=== PATIENT | female | born 1975 | race Caucasian/White ===

== ENCOUNTER 2017-12-11 16:03 | Emergency (ER) | payer OTHER ==
[~2017-12-11] VITALS: Ht 154.9 cm; Wt 57.6 kg
--- NOTE | 2017-12-11 16:16 | ED GENERAL ADULT ---
History of Present Illness General Chief Complaint: General Adult Stated Complaint: PT WAS SENT BY HER DR Source: patient Exam Limitations: no limitations Vital Signs & Intake/Output Vital Signs & Intake/Output Vital Signs Date Time Temp Pulse Resp B/P B/P Pulse O2 O2 Flow FiO2 Mean Ox Delivery Rate 12/11 1942 98.2 82 20 129/84 97 Room Air 12/11 1839 98.2 84 18 113/54 99 12/11 1607 98.8 111 18 124/82 98 Room Air Allergies Coded Allergies: No Known Allergies (07/26/16) Triage Note: 42 YO FEMALE TO TRIAGE FOR EVAL OF MIGRANE SINCE SATURDAY. REPORTS SHE TRIED TO CALL NEUROLOGIST BUT WAS UNABLE TO GET AHOLD OF THEM. STATES NORAMLLY TAKES TOPAMAX. STATES +NAUSEA AT THIS TIME. Triage Nurses Notes Reviewed? yes Onset: Abrupt Duration: day(s): Timing: recent history : No Patient currently breastfeeds: No HPI: 12/11/17 4:42 PM 42-year-old female presents to the emergency department for severe migraine headache. According to the patient she has a history of migraines. She says that this headache started on Saturday evening. It is consistent with her prior migraines. She usually takes Topamax and Zomig for breakthrough pain. However she continues to have pain and vomiting. She also has a history of insulin- dependent diabetes. (Franck Lopez DO) Reconcile Medications Sulfacetamide Sodium/Sulfur (Sod Sulfacet-Sulfur 10-5% Clsr) 10 %-5 % (W/W) CLEANSER SKIN PROBLEMS (Reported) Topiramate 200 MG TABLET 1 TAB PO BID SEIZURES (Reported) (Ba Good MD) Past History Travel History Traveled to [place] past 21 day No Medical History Any Pertinent Medical History? see below for history Neurological: migraine EENT: NONE Cardiovascular: NONE Respiratory: NONE Gastrointestinal: NONE Hepatic: NONE Renal: NONE Musculoskeletal: NONE Psychiatric: depression, PTSD Endocrine: Type 1 diabetes Blood Disorders: NONE Cancer(s): NONE MEN'S FURNISHINGS SALESPERSON/Reproductive: NONE Surgical History Surgical History: insulin pump Psychosocial History What is your primary language Ma[place] Tobacco Use: Never used Family History Hx Contributory? No (Franck Lopez DO) Review of Systems Review of Systems Constitutional: Denies: fever. EENTM: Denies: blurred vision. Respiratory: Denies: short of breath. Cardiovascular: Denies: chest pain. GI: Denies: abdominal pain. Genitourinary: Reports: no symptoms. Musculoskeletal: Reports: no symptoms. Skin: Reports: no symptoms. Neurological/Psychological: Reports: headache. Hematologic/Endocrine: Reports: no symptoms. Immunologic/Allergic: Reports: see HPI. (Franck Lopez DO) Physical Exam Physical Exam General Appearance: well developed/nourished, alert, awake, anxious, moderate distress Head: atraumatic, normal appearance Eyes: Bilateral: normal appearance, PERRL, EOMI (+ photophobia). Ears, Nose, Throat: normal pharynx, normal ENT inspection Neck: normal inspection, supple, full range of motion Respiratory: normal breath sounds, chest non-tender, no respiratory distress Cardiovascular: regular rate/rhythm Peripheral Pulses: 4+ radial (R), 4+ radial (L) Gastrointestinal: soft, non-tender Back: normal range of motion Extremities: normal inspection, normal range of motion, no edema Neurologic/Psych: no motor/sensory deficits, awake, alert, oriented x 3 Skin: intact, normal color, warm/dry Core Measures ACS in differential dx? No CVA/TIA Diagnosis: No Sepsis Present: No Sepsis Focused Exam Completed? No (Franck Lopez DO) Progress Differential Diagnoses I considered the following diagnoses in my evaluation of the patient: [Migraine headache, tension headache, subarachnoid hemorrhage, stroke, TIA, diabetic ketoacidosis, , meningitis] Plan of Care: Orders Procedure Date/time [facility] 1916 Active LYME TITRE 12/11 1647 Active HUMAN BETA HCG SCREEN 12/11 164 Complete COMPREHENSIVE METABOLIC PANEL 12/11 164 Complete CBC WITHOUT DIFFERENTIAL 12/11 164 Complete OXYGEN SETUP (GEN) 12/11 1639 Active Laboratory Tests 12/11/17 1815: Anion Gap 12, Estimated GFR 49 L, BUN/Creatinine Ratio 15.8, Glucose 57 L, Calcium 9.0, Total Bilirubin 0.5, AST 35, ALT 45, Alkaline Phosphatase 47, Total Protein 6.4, Albumin 3.7, Globulin 2.7, Albumin/Globulin Ratio 1.4, Total Beta HCG NEGATIVE, CBC w Diff NO MAN DIFF REQ, RBC 4.18 L, MCV 96.9, MCH 31.7 H, MCHC 32.8 L, RDW 13.5, MPV 8.2, Gran % 78.0 H, Lymphocytes % 16.2 L, Monocytes % 4.8, Eosinophils % 0.6, Basophils % 0.4, Absolute Granulocytes 7.5 H, Absolute Lymphocytes 1.6, Absolute Monocytes 0.5, Absolute Eosinophils 0.1, Absolute Basophils 0, Lyme Disease Antibody Pending 12/11/17 7:25 PM A she was signed out to Dr. Good. She is for reevaluation. Initial ED EKG: none (Franck Lopez DO) Departure Departure Condition: Stable Clinical Impression Primary Impression: Migraine Referrals: Maryann Barnes MD (PCP/Family) Departure Forms: Customer Survey General Discharge Information (Franck Lopez DO) Departure Time of Disposition: 1935 Disposition: HOME OR SELF CARE (Florentino AVINA,Ba) Critical Care Note Critical Care Note Critical Care Time: non-applicable (Franck Lopez DO)
[2017-12-11 17:46] LABS: ABSOLUTE BASOPHIL COUNT 0 /CUMM (0.0-0.2); ABSOLUTE EOSINOPHIL COUNT 0.1 /CUMM (0.0-0.7); EOSINOPHIL % 0.6 % (0-5)
[2017-12-11 18:27] LABS: ABSOLUTE GRANULOCYTE CT 7.5 /CUMM (1.4-6.5); ABSOLUTE LYMPH COUNT 1.6 /CUMM (1.2-3.4); ABSOLUTE MONOCYTE COUNT 0.5 /CUMM (0.10-0.60); BASOPHIL % 0.4 % (0.0-2.0); HEMATOCRIT 40.5 % (37-47); MEAN CORPUSCULAR HGB 31.7 PG (27.0-31.0); MEAN CORPUSCULAR HGB CONC 32.8 G/DL (33.0-37.0); MEAN CORPUSCULAR VOLUME 96.9 FL (81.0-99.0); MEAN PLATELET VOLUME 8.2 FL (7.4-10.4); PLATELET COUNT 226 /CUMM (130-400); RBC DISTRIBUTION WIDTH 13.5 % (11.5-14.5); RED BLOOD CELL CT 4.18 /CUMM (4.20-5.40); WHITE BLOOD CELL COUNT 9.6 /CUMM (4.8-10.8)
[2017-12-11 19:42] VITALS: BP 129/84
[2017-12-11] MEDS ORDERED: TOPIRAMATE200 M2 PO (19:44)
[2017-12-11] MEDS ORDERED: [UNRECOGNIZED DRUG - OTHER] (19:44)
== END 2017-12-11 19:46 ==
LOC: ERH 16:03
PROVIDERS: Emergency Medicine
DX: G43.909 Migraine, unspecified, not intractable, without status migrainosus (principal)
CPT/HCPCS: 86618; 96365; 96375; 96376; J1200; J1885; J2550